=== PATIENT | female | born 1985 | race American Indian/Alaskan Native ===

== ENCOUNTER 2019-10-16 15:45 | Outpatient (CLI) | payer MEDICAID ==
[2019-10-16 17:09] VITALS: BP 140/85
--- NOTE | 2019-10-16 17:28 | Ultrasound Report ---
CLINICAL DATA: well-being TECHNICAL DATA: Document breath, motion, gestational age, tone, and fluid. FINDINGS: respiration, tone, and motion are well visualized and normal. Amniotic fluid volume is normal. Biophysical profile score is 8/8. The lower uterine segment is evaluated and there is no evidence of placenta previa. heart rate is 144 IMPRESSION: The biophysical profile score is 8/8. Signer Name: August Austin MD Signed: 10/16/2019 5:24 PM Workstation Name: [id number]
== END 2019-10-16 17:27 | disposition home or self-care (01) ==
LOC: TRG 15:45
PROVIDERS: ATTEND Obstetrics & Gynecology
DX: O47.1 False labor at or after 37 completed weeks of gestation (principal); Z3A.37 37 weeks gestation of pregnancy
CPT/HCPCS: 76819

== ENCOUNTER 2019-10-27 16:00 | Inpatient (IN) | payer MEDICAID ==
--- NOTE | 2019-10-27 16:08 | History and Physical Report ---
History of Present Illness Date of examination: 10/27/19 Date of admission: 10/27/19 16:00 Chief complaint: Sent from office for IOL d/t pre-e History of present illness: EDC Confirmation: 11/20/2019 Past History : 1 Term Births: 0 Premature Births: 0 Living Children: 0 Para: 0 Mult. Births: 0 Prev : 0 Prev. attempt? 0 Aborta: 0 Elect. Ab: 0 Spont. Ab: 0 Ectopics: 0 Past Medical History: BMI 65 Pt states that she has lost 100lbs in the last 2 years Past Surgical History: negative Past Medical History Anesthesia Complications: negative Anemia: negative Autoimmune Disorder: negative Bleeding Disorder: negative Blood Transfusions: negative Breast Disease: negative Diabetes: negative Heart Disease: negative Hypertension: negative Hepatitis/Liver Disease: negative Kidney Disease/UTI: negative Neurologic/Epilepsy/Migraines: negative Phlebitis/Varicosities: negative Psychiatric: negative Pulmonary Disease/Asthma: negative Thyroid Disease: negative Hospitalizations: negative Surgery (Non-knurling machine operator): negative Abnormal PAP: negative Social Hx: Single no ETOH/Drugs/Smoking Infection History Hx of STD: none Genetic History Congenital Heart Defect: Mom: no Dad: no Ekaterina Disease: Mom: no Dad: no Thalassemia Mom: no Dad: no Neural Tube Defect Mom: no Dad: no Down's Syndrome Mom: no Dad: no José-Sachs Mom: no Dad: no Sickle Cell Disease/Trait Mom: no Dad: no Hemophilia Mom: no Dad: no Muscular Dystrophy Mom: no Dad: no Cystic Fibrosis Mom: no Dad: no [place] Chorea Mom: no Dad: no Mental Retardation Mom: no Dad: no Fragile X Mom: no Dad: no Other Genetic/Chromosomal Disorder Mom: no Dad: no Child w/other defect Mom: no Dad: no Enviromental Exposures Xray Exposure: no Medication, drug, or alcohol use since LMP: no Chemical/Other Exposure: no Exposure to Cat Liter: no Hx of Parvovirus (Fifth Disease): no Occupational Exposure to Children: none Active Medications (reviewed today): ZOFRAN ODT 8 MG ORAL TABLET DISINTEGRATING (ONDANSETRON) 1 po q12hrs prn Current Allergies (reviewed today): No known allergies Past History Past Medical History: other (see HPI) Past Surgical History: other (see HPI) CUSTOMS GUARD History: other (see HPI) Family/Genetic History: other (see HPI) - Obstetrical History Expected Date of Delivery: 11/20/19 Actual Gestation: 36 Week(s) 4 Day(s) : 1 Para: 0 Hx # Term Pregnancies: 0 Number of Pregnancies: 0 Spontaneous Abortions: 0 Induced : 0 Number of Living Children: 0 Medications and Allergies Allergies Allergy/AdvReac Type Severity Reaction Status Date / Time No Known Allergies Allergy Verified 10/27/19 16:21 Review of Systems All systems: negative - Physical Exam Cardiovascular: Regular rate Lungs: Positive: Normal air movement Abdomen: Positive: normal appearance, soft Genitourinary (Female): Positive: normal external genitalia, normal perenium Extremities: Positive: edema - Obstetrical FHR: auscultation normal (efm limitated d/t maternal habitus) Uterine Contraction Monitor Mode: External Cervical Dilatation: 0 (unable to palpate presenting part) Cervical Effacement Percentage: 0 station: -4 Uterine Tone Measurement Phase: Resting Results All other labs normal. Assessment and Plan 34y/o @ 36+4 weeks, morbidly obese, pre-e. Seen in office today - b/p 154/90, 2+ proteinuria, 6lb weight gain in last week. NST nonreactive in office today. Pt denies PORTER/visual changes or epigastric pain. [facility] recommends delivery by 37+0 weeks d/t pre-e or sooner if indicated. reviewed assessment with Dr. Lancaster, will start IOL today. u/s ordered to confirm presentation and BPP. - Patient Problems (1) 36 weeks gestation of Current Visit: Yes Status: Acute (2) Pre-eclampsia Current Visit: Yes Status: Acute Qualifiers: Trimester: third trimester Qualified Code(s): O14.93 - Unspecified pre- eclampsia, third trimester Plan to address problem: IOL w/ cervidil pre-e labs careful monitoring of b/p will start mag sulfate once in active labor (3) BMI 70 and over, adult Current Visit: Yes Status: Acute
[2019-10-27] MEDS ORDERED: ONDANSETRON 4 MG/2 ML INJ IV PRN (16:13)
[2019-10-27] MEDS ORDERED: MINERAL OIL 30 ML ORAL LIQD PO PRN (16:13)
[2019-10-27] MEDS ORDERED: ePHEDrine SULFATE 50 MG/1 ML INJ IV PRN (16:13)
[2019-10-27] MEDS ORDERED: TERBUTALINE 1 MG/1 ML INJ SUB-Q PRN (16:13)
[2019-10-27] MEDS ORDERED: LIDOCAINE (2%) 20 MG/1 ML VIAL 20 ML MDV INFILTRATI ONE (16:13)
[2019-10-27] MEDS ORDERED: OXYTOCIN 20 UNIT/1000ML DRIP 20 UNITS/1,000 ML BAG IV SCH ×2 (17:00→22:00)
[2019-10-27] MEDS ORDERED: DINOPROSTONE 10 MG VAG SUPP VG ONE (17:00)
[2019-10-27] MEDS ORDERED: OXYTOCIN DRIP 30 UNITS/500 ML BAG IV SCH (17:00)
[2019-10-27 17:46] LABS: Hemoglobin 9.2 gm/dl (10.1-14.3); Mean Corpuscular HGB Conc 31 % (30-34); Platelet Count 309 K/mm3 (140-440); Red Blood Count 4.44 M/mm3 (3.65-5.03)
[2019-10-27 17:53] LABS: Mean Corpuscular Volume 68 fl (79-97); Red Cell Distribution Width 20.1 % (13.2-15.2)
[2019-10-27 18:10] LABS: Alanine Aminotransferase 5 units/L (7-56)
[2019-10-27 18:29] LABS: Uric Acid 3.5 mg/dL (3.5-7.6)
[2019-10-27 19:41] LABS: Bacteria,Urine 1+ /HPF (Negative); Bilirubin,Urine NEG (Negative); Blood,Urine SM (Negative); Color,Urine Amber (Yellow); Mucus,Urine 3+ /HPF
[2019-10-27] MEDS: LACTATED RINGERS 1,000 ML IV SCH (20:05)
--- NOTE | 2019-10-27 21:07 | Ultrasound Report ---
Limited OB ultrasound for biophysical profile FINDINGS: breathing, spontaneous motion, posterior and KOBY all score 2/2 for a total of 8 /8. heart rate is 138 minutes. KOBY is normal at 17.1 cm. Single fetus is identified in transver se presentation with the head to the maternal right. Appropriate measurements reveal an MA of 38 week s 1 day for an EDC of 11/09/2019. Signer Name: Julien Mcgovern MD Signed: 10/27/2019 9:03 PM Workstation Name: [id number]
--- NOTE | 2019-10-27 21:28 | Event Note ---
Date: 10/27/19 reviewed u/s - baby is transverse. updated Dr. Lancaster, plan to hold any induction and plan for c/s in AM. Called patient and nurse to discuss plan, patient voiced relief. NPO after MN. Will continue to monitor closely.
[2019-10-27] MEDS ORDERED: METOCLOPRAMIDE 10 MG/2 ML INJ IV ONE (21:29)
[2019-10-27] MEDS ORDERED: FAMOTIDINE 20 MG/2 ML INJ IV ONE (21:29)
[2019-10-27] MEDS ORDERED: BICITRA ORAL LIQD 30ML PO ONE (21:29)
[2019-10-27] MEDS ORDERED: LACTATED RINGERS 1,000 ML IV SCH (22:00)
--- NOTE | 2019-10-28 07:29 | Event Note ---
Date: 10/28/19 Patient informed the risks of the surgery include bleeding possibly bleeding heavy enough to require blood transfusion, infection possible damage to bowel bladder ureter. All questions answered. Patient agrees to proceed
[2019-10-28] MEDS ORDERED: ceFAZolin/STERILE WATER 2 GM/20 ML SYRINGE IV ONE (07:56)
[2019-10-28] MEDS ORDERED: FAMOTIDINE 20 MG/2 ML INJ IV ONE (08:00)
[2019-10-28] MEDS ORDERED: BICITRA ORAL LIQD 30ML PO ONE (08:00)
[2019-10-28] MEDS ORDERED: METOCLOPRAMIDE 10 MG/2 ML INJ IV ONE (08:00)
[2019-10-28] MEDS ORDERED: SODIUM CHLORIDE 0.9% IRR 1,500 ML BOTTLE IR ONE (08:15)
[2019-10-28] MEDS ORDERED: WATER FOR IRRIG STERILE 1,500 ML BOTTLE IR ONE (08:15)
[2019-10-28] MEDS ORDERED: OXYTOCIN 10 UNIT/1 ML INJ ONE (08:41)
[2019-10-28] MEDS ORDERED: ONDANSETRON 4 MG/2 ML INJ ONE (09:07)
[2019-10-28] MEDS ORDERED: KETOROLAC 30 MG/1 ML INJ ONE (09:07)
[2019-10-28] MEDS ORDERED: NALOXONE 0.4 MG/1 ML INJ IV PRN (09:18)
[2019-10-28] MEDS ORDERED: LANOLIN/ZINC/DIMETHICONE (LANSINOH) 7 GM TP PRN (09:18)
[2019-10-28] MEDS ORDERED: KETOROLAC 30 MG/1 ML INJ IV PRN (09:18)
[2019-10-28] MEDS ORDERED: WITCH HAZEL/ GLYCERIN PAD TP PRN (09:18)
--- NOTE | 2019-10-28 09:18 | Operative Report ---
Operative Report Operative Report: Date of procedure: 10/28/2019 Pre-operative diagnosis: 37 weeks gestation Mild preeclampsia Morbid obesity transverse lie Nonreassuring testing Post-operative diagnosis: Same Procedure name(s): Primary low transverse section via Pfannenstiel skin incision Surgeon: Dr. Marin Actuarial Analyst: Lopez Lancaster MD Anesthesia: Epidural EBL: 600 mL Urine output: 50 mL of clear concentrated urine out at the end of the procedure. It should be noted that the urine appeared concentrated prior to the onset of delivery as well Fluids: 400 mL Findings: Liveborn male weight 8 lbs. 11 oz. Apgars of 1 and 9 at one and 5 minutes Small uterine fibroid Grossly normal fallopian tubes and ovaries bilaterally Indications: Patient was admitted for induction of labor secondary to having a nonreactive NST and haven't preeclampsia. Patient was noted to have transverse lie at admission. Decision was made to proceed with section the next morning as patient had just eaten prior to admission to the hospital. All risks benefits and alternatives were discussed with the patient. Consents were signed and placed on the chart. Procedure: Patient was taking to the operating room. Patient was then prepped and draped in sterile fashion after anesthesia was found to be adequate. A low transverse skin incision was made with the scalpel and carried down to the underlying layer of fascia with the Bovie. The fascia was then incised in the midline and this incision was extended bilaterally with the Bovie. The superior aspect of the fascia was grasped with Parvin clamps tented upward and dissected off of the anterior rectus muscles with the scalpel. In similar fashion the inferior aspect of the fascia was grasped with Parvin clamps tented upward and dissected off of the anterior rectus muscles. The rectus muscles were then bluntly divided in the midline. The peritoneum was identified and entered into sharply. The bladder blade was placed. The bladder flap was created using the Metzenbaum scissors. The bladder blade was replaced. A lower transverse uter ine incision was made with the scalpel and extended bilaterally with the bandage scissors. Artificial rupture of membranes was performed yielding clear amniotic fluid. Should be noted that there was a copious amount of amniotic fluid. was noted to be in footling breech presentation at the time of rupture of membranes. The was then delivered via normal breech extraction with some difficulty in delivering the shoulders. The umbilical cord was clamped x2. The cord was cut. The infant was then placed in sterile bassinet. The cord blood was collected. The placenta was manually extracted in its entirety. The uterus was exteriorized and cleared of all clots and debris. The uterine incision was closed using 0 Vicryl in a running locking fashion. A second imbricating layer of the same suture was then created. The posterior cul-de-sac was copiously irrigated. The uterus was returned to the abdomen. The gutters were also irrigated. The anterior rectus fascia was reapproximated using 0 Vicryl in a running fashion. The subcuticular fat was reapproximated using 2-0 Vicryl in a running fashion. The skin was reapproximated with 4-0 Monocryl in a subcuticular stitch. The patient tolerated the procedure well. Sponge lap and needle counts were all correct x3. Patient was taken to the recovery room awake and in stable condition.
--- NOTE | 2019-10-28 09:33 | Anesthesia Consultation ---
Anesthesia Consult and Med Hx Date of service: 10/28/19 - Airway Anesthetic Teeth Evaluation: Poor ROM Head & Neck: Adequate Mental/Hyoid Distance: Adequate Mallampati Class: Class III Intubation Access Assessment: Probably Good - Pulmonary Exam CTA: Yes - Cardiac Exam Cardiac Exam: RRR - Pre-Operative Health Status ASA Pre-Surgery Classification: ASA3 Proposed Anesthetic Plan: Epidural - Pulmonary Hx Smoking: No Hx Asthma: No Hx Respiratory Symptoms: No SOB: No COPD: No Home Oxygen Therapy: No Hx Pneumonia: No Hx Sleep Apnea: No - Cardiovascular System Hx Hypertension: Yes (presently) Hx Coronary Artery Disease: No Hx Heart Attack/AMI: No Hx Angina: No Hx Percutaneous Transluminal Coronary Angioplasty (PTCA): No Hx Cardia Arrhythmia: No Hx Pacemaker: No Hx Internal Defibrillator: No Hx Valvular Heart Disease: No Hx Heart Murmur: No Hx Peripheral Vascular Disease: No - Central Nervous System Hx Neuromuscular Disorder: No Hx Seizures: No CVA: No Hx Back Pain: Yes Hx Psychiatric Problems: No - Gastrointestinal Hx Ulcer: No Hx Gastroesophageal Reflux Disease: Yes - Endocrine Hx Renal Disease: No Hx End Stage Renal Disease: No Hx Cirrhosis: No Hx Liver Disease: No Hx Insulin Dependent Diabetes: No Hx Non-Insulin Dependent Diabetes: No Hx Thyroid Disease: No Hx Hypothyroidism: No Hx Hyperthyroidism: No - Hematic Hx Anemia: No Hx Sickle Cell Disease: No - Other Systems Hx Alcohol Use: No Hx Substance Use: No Hx Cancer: No Hx Obesity: Yes
--- NOTE | 2019-10-28 09:33 | Anesthesia Day of Surgery ---
Anesthesia Day of Surgery - Day of Surgery Patient Examined: Yes Patient H&P Reviewed: Yes Patient is NPO: Yes Beta Blockers: No Cardiac Clearance: No Pulmonary Clearance: No Michoacano's Test: N/A
--- NOTE | 2019-10-28 09:34 | Post Anesthesia Evaluation ---
- Post Anesthesia Evaluation Patient Participated: Yes Airway Patent: Yes Stable Respiratory Function: Yes Nausea/Vomiting: No Temp > 96.8F: Yes Pain Manageable: Yes Adequeate Hydration: Yes Anesthesia Complications: No Block Receding Appropriately: Yes Patient on Ventilator: No
[2019-10-28] MEDS ORDERED: BUPIVACAINE/PF (0.5%) 5 MG/1 ML 30 ML VIAL INFILTRATI ONE (09:38)
[2019-10-28] MEDS ORDERED: OXYTOCIN 20 UNIT/1000ML DRIP 20 UNITS/1,000 ML BAG IV SCH (10:00)
[2019-10-28] MEDS ORDERED: MAGNESIUM SULFATE 40GM/1000ML 40 GM/1,000 ML BAG IV SCH (10:00)
[2019-10-28] MEDS ORDERED: DEXMEDETOMIDINE 200 MCG/2 ML VIAL IV ONE (10:43)
[2019-10-28] MEDS: FERROUS SULFATE 325 MG TAB PO SCH (13:12)
[2019-10-28] MEDS: MORPHINE 2 MG/1 ML INJ IV PRN ×2 (16:15→21:35)
[2019-10-28] MEDS: LACTATED RINGERS 1,000 ML IV SCH (16:54)
[2019-10-28] MEDS: ceFAZolin/NS 1 GM/50 ML 1 GM/50 ML BAG IV SCH (17:00)
[2019-10-28 20:20] LABS: Hematocrit 26.3 % (30.3-42.9); Hemoglobin 8.1 gm/dl (10.1-14.3)
[2019-10-29] MEDS ORDERED: ALUM-MAG HYDROXIDE-SIMETHICONE 200-200-20MG/5ML ORAL LIQD 30 ML PO ONE (01:08)
[2019-10-29] MEDS: LACTATED RINGERS 1,000 ML IV SCH (01:41)
[2019-10-29] MEDS: ceFAZolin/NS 1 GM/50 ML 1 GM/50 ML BAG IV SCH (01:41)
[2019-10-29] MEDS ORDERED: TETANUS,DIPH,PERTUSS(ACELL) VACCINE 0.5 ML SYRINGE IM ONE (06:00)
--- NOTE | 2019-10-29 07:34 | Progress Note ---
Assessment and Plan Pt in good spirits this AM. "I just want to get up and walk around." Pt voiced understanding @ POC and that MGSO4 will be off @ 1000. As noted start Labetalol 200mg BID. Order in EMR and verbalized to RN caring for pt. Orders for transfer to [facility] in EMR - Patient Problems (1) delivery delivered Onset Date: ~10/28/19 Current Visit: Yes Status: Acute Plan to address problem: Encouraged pt to use IS. Advance diet and activity as tolerated. Continue PP pathway (2) Pre-eclampsia Onset Date: ~10/28/19 Current Visit: Yes Status: Acute Qualifiers: Trimester: third trimester Qualified Code(s): O14.93 - Unspecified pre- eclampsia, third trimester Plan to address problem: 160-130/80-60 Denies PORTER, blurred vision, chest pain. Consulted with Will start Labetalol 200mg po BID MGSO4 off @ 1000. Will transfer to [facility] Subjective - Subjective Date of service: 10/29/19 (24hr MGSO4 complete @ 1000) Principal diagnosis: Day#1 s/p primary section Mild PreE Patient reports: voiding normally (clear yellow urine to BSB), pain well controlled, flatus [place]: doing well Objective - Vital Signs Latest vital signs: Vital Signs Temp Pulse Resp BP Pulse Ox 10/29/19 07:27 95 H 100 10/29/19 07:22 99 H 98 10/29/19 07:17 104 H 100 10/29/19 07:12 102 H 157/81 100 10/29/19 07:07 102 H 100 10/29/19 07:02 114 H 100 10/29/19 06:57 105 H 100 10/29/19 06:52 104 H 99 10/29/19 06:47 100 H 100 10/29/19 06:42 106 H 99 10/29/19 06:37 104 H 100 10/29/19 06:32 109 H 100 10/29/19 06:27 104 H 99 10/29/19 06:22 104 H 98 10/29/19 06:17 103 H 99 10/29/19 06:12 103 H 136/69 99 10/29/19 06:07 104 H 99 10/29/19 06:02 107 H 100 10/29/19 05:57 102 H 99 10/29/19 05:52 106 H 98 10/29/19 05:47 104 H 99 10/29/19 05:42 103 H 95 10/29/19 05:36 111 H 100 10/29/19 05:31 103 H 96 10/29/19 05:26 102 H 96 10/29/19 05:21 104 H 97 10/29/19 05:16 107 H 97 10/29/19 05:12 106 H 145/81 10/29/19 05:11 98 H 96 10/29/19 05:06 102 H 97 10/29/19 05:01 99 H 97 10/29/19 04:56 101 H 98 10/29/19 04:51 106 H 97 10/29/19 04:46 109 H 98 10/29/19 04:41 104 H 97 10/29/19 04:36 105 H 97 10/29/19 04:31 104 H 97 10/29/19 04:26 103 H 98 10/29/19 04:21 106 H 98 10/29/19 04:16 109 H 97 10/29/19 04:12 105 H 155/80 10/29/19 04:11 110 H 98 10/29/19 04:06 106 H 95 10/29/19 04:01 110 H 97 10/29/19 03:56 107 H 97 10/29/19 03:51 109 H 97 10/29/19 03:49 114 H 94 10/29/19 03:46 109 H 98 10/29/19 03:43 108 H 155/84 10/29/19 03:41 86 89 10/29/19 03:33 118 H 99 10/29/19 03:28 112 H 98 10/29/19 03:23 110 H 169/77 99 10/29/19 03:18 112 H 98 10/29/19 03:13 112 H 99 10/29/19 03:12 109 H 166/81 10/29/19 03:08 109 H 98 10/29/19 03:03 111 H 99 10/29/19 02:58 110 H 98 10/29/19 02:53 109 H 99 10/29/19 02:48 110 H 99 10/29/19 02:43 108 H 98 10/29/19 02:38 107 H 99 10/29/19 02:33 101 H 98 01/19/20 02:28 105 H 99 10/29/19 02:27 105 H 163/79 10/29/19 02:23 116 H 99 10/29/19 02:22 104 H 176/102 10/29/19 02:19 111 H 94 10/29/19 02:18 105 H 98 10/29/19 02:15 103 H 156/79 10/29/19 02:13 107 H 99 10/29/19 02:12 100 H 171/84 10/29/19 02:08 105 H 98 10/29/19 02:03 101 H 99 10/29/19 01:58 109 H 99 10/29/19 01:53 104 H 98 10/29/19 01:48 102 H 99 10/29/19 01:43 102 H 98 10/29/19 01:38 101 H 98 10/29/19 01:33 106 H 98 10/29/19 01:28 106 H 100 10/29/19 01:23 103 H 99 10/29/19 01:18 107 H 98 10/29/19 01:13 104 H 99 10/29/19 01:08 111 H 98 10/29/19 01:06 103 H 150/86 10/29/19 01:03 115 H 99 10/29/19 00:58 104 H 99 10/29/19 00:53 110 H 97 10/29/19 00:48 100 H 98 10/29/19 00:43 107 H 99 10/29/19 00:38 97 H 98 10/29/19 00:33 106 H 98 10/29/19 00:28 99 H 100 10/29/19 00:23 101 H 100 10/29/19 00:18 107 H 100 10/29/19 00:13 99 H 99 10/29/19 00:08 95 H 97 10/29/19 00:03 95 H 99 10/28/19 23:58 93 H 96 10/28/19 23:53 90 96 10/28/19 23:48 89 96 10/28/19 23:46 89 93 10/28/19 23:43 96 H 98 10/28/19 23:38 94 H 99 10/28/19 23:33 98 H 98 10/28/19 23:28 99 H 98 01/18/20 23:23 98 H 100 0118/20 23:18 102 H 99 0118/20 23:16 90 88 0118/20 23:14 95 H 131/68 0118/20 23:13 74 96 0118/20 23:08 98 H 98 0118/20 23:03 95 H 97 0118/20 22:58 99 H 100 0118/20 22:53 96 H 100 0118/20 22:48 99 H 98 18/20 22:43 102 H 98 18/20 22:38 96 H 99 18/20 22:33 97 H 99 18/20 22:32 100 H 93 18/20 22:28 100 H 98 18/20 22:26 105 H 88 0118/20 22:24 96 H 137/62 18/20 22:23 100 H 97 0118/20 22:18 98 H 100 18/20 22:15 101 H 91 18/20 22:13 96 H 94 18/20 22:08 96 H 98 18/20 22:03 103 H 99 18/20 21:58 93 H 99 18/20 21:53 93 H 99 18/20 21:50 95 H 94 18/20 21:48 87 97 18/20 21:43 91 H 99 18/20 21:38 94 H 99 18/20 21:35 20 01/18/20 21:33 89 99 18/20 21:28 88 98 18/20 21:23 94 H 99 18/20 21:18 85 98 18/20 21:15 87 139/66 18/20 21:13 91 H 97 0118/20 21:08 91 H 98 18/20 21:03 87 98 0118/20 20:58 90 100 0118/20 20:53 91 H 99 0118/20 20:48 94 H 98 18/20 20:43 90 99 0118/20 20:38 92 H 99 18/20 20:33 88 98 18/20 20:28 89 97 18/20 20:23 95 H 98 0118/20 20:18 88 98 01/18/20 20:16 88 136/68 18/20 20:13 91 H 98 18/20 20:08 89 98 18/20 20:03 89 99 18/20 19:58 91 H 100 18/20 19:53 95 H 99 18/20 19:48 92 H 100 18/20 19:43 86 97 18/20 19:38 90 98 18/20 19:33 96 H 98 18/20 19:30 98.5 F 18/20 19:28 90 99 18/20 19:23 89 99 18/20 19:18 86 99 18/20 19:13 94 H 98 18/20 19:12 96 H 148/85 18/20 19:08 89 98 18/20 19:03 89 98 18/20 18:58 87 97 18/20 18:53 88 100 18/20 18:48 84 99 18/20 18:43 90 100 18/20 18:38 90 100 18/20 18:33 84 100 18/20 18:28 80 99 18/20 18:23 93 H 100 18/20 18:18 88 96 18/20 18:14 75 92 18/20 18:13 83 97 18/20 18:12 80 136/65 18/20 18:08 83 95 18/20 18:03 89 80 L 18/20 17:58 74 98 18/20 17:56 84 89 18/20 17:53 72 89 18/20 17:51 82 83 L 18/20 17:48 71 95 18/20 17:46 77 93 18/20 17:43 82 100 18/20 17:40 82 94 18/20 17:38 85 92 18/20 17:35 68 93 18/20 17:33 73 97 /18/20 17:29 75 94 /18/20 17:28 83 95 18/20 17:23 78 95 18/20 17:22 75 90 18/20 17:18 85 99 01/18/20 17:13 86 126/59 100 /18/20 17:08 82 100 18/20 17:03 98.2 F 92 H 20 98 18/20 16:58 83 99 18/20 16:53 75 99 18/20 16:48 84 96 18/20 16:47 73 92 18/20 16:43 92 H 95 18/20 16:41 73 94 18/20 16:38 78 98 18/20 16:36 79 93 18/20 16:33 78 97 18/20 16:28 85 95 18/20 16:27 81 94 18/20 16:23 85 97 18/20 16:18 90 100 18/20 16:16 86 88 18/20 16:13 82 98 18/20 16:12 82 137/73 18/20 16:08 98 H 96 10/28/20 16:07 69 94 20 16:03 74 95 20 16:01 86 89 18/20 15:58 67 97 18/20 15:56 68 92 18/20 15:53 81 98 18/20 15:48 91 H 93 18/20 15:43 70 90 18/20 15:38 81 98 18/20 15:37 78 92 18/20 15:33 83 99 18/20 15:28 84 100 18/20 15:23 84 99 18/20 15:18 80 100 18/20 15:13 91 H 99 18/20 15:11 79 133/72 18/20 15:08 87 99 18/20 15:04 92 H 94 18/20 15:03 85 98 18/20 14:59 89 88 18/20 14:58 86 97 18/20 14:53 78 100 18/20 14:48 85 97 18/20 14:43 82 99 18/20 14:38 79 98 18/20 14:33 83 100 18/20 14:28 88 98 10/28/20 14:25 98.1 F 20 10/28/19 14:23 76 100 10/28/19 14:18 81 99 10/28/19 14:13 86 100 10/28/19 14:08 85 99 10/28/19 14:03 85 100 10/28/19 13:58 85 97 10/28/19 13:53 83 99 10/28/19 13:48 83 99 10/28/19 13:43 90 99 10/28/19 13:38 79 85 10/28/19 13:33 94 H 98 10/28/19 13:28 90 98 10/28/19 13:23 92 H 97 10/28/19 13:21 52 L 86 10/28/19 13:18 94 H 99 10/28/19 13:13 85 99 10/28/19 13:08 90 96 10/28/19 13:05 87 94 10/28/19 13:03 92 H 94 10/28/19 13:00 93 H 129/78 94 10/28/19 12:58 92 H 94 10/28/19 12:55 92 H 94 10/28/19 12:53 90 95 10/28/19 12:50 90 94 10/28/19 12:48 91 H 95 10/28/19 12:44 93 H 94 10/28/19 12:43 89 94 10/28/19 12:38 91 H 94 10/28/19 12:37 89 94 10/28/19 12:33 91 H 94 10/28/19 12:29 91 H 93 10/28/19 12:28 87 95 10/28/19 12:23 88 94 10/28/19 12:18 87 99 10/28/19 12:13 89 98 10/28/19 12:08 92 H 98 10/28/19 12:03 96 H 98 10/28/19 11:58 89 100 10/28/19 11:52 88 97 10/28/19 11:50 88 133/73 10/28/19 11:47 88 98 20 11:42 86 99 10/28/19 11:37 90 100 10/28/19 11:35 84 128/79 20 11:32 92 H 99 10/28/19 11:27 85 100 10/28/19 11:22 88 98 10/28/19 11:20 83 135/71 10/28/19 11:17 78 99 10/28/19 11:12 85 98 10/28/19 11:07 82 99 10/28/19 11:05 86 136/72 10/28/19 11:02 81 99 10/28/19 10:57 91 H 100 10/28/19 10:52 84 125/65 98 10/28/19 10:30 97.9 F 10/28/19 10:20 97.9 F 78 25 H 130/69 100 10/28/19 10:05 85 24 127/78 100 10/28/19 09:50 94 H 22 131/71 100 10/28/19 09:35 78 25 H 122/64 100 10/28/19 09:30 87 19 105/60 100 10/28/19 09:25 97.9 F 90 15 102/55 100 Intake and Output 10/28/19 10/29/19 10/29/19 22:59 06:59 14:59 Intake Total 50 1000 Output Total 1525 2300 Balance -1475 -1300 Intake: IV 50 1000 ANCEF/NS 1 GM/50 ML 1 gm 50 In 50 ml @ 100 mls/hr IV Q8H ARSH Rx#:[id number] Lactated Ringers 1,000 ml 1000 @ 125 mls/hr IV DIRECT ARSH Rx#:[id number] Output: Urine 1525 2300 Indwelling Catheter 1525 2300 Other: Total, Output Amount 300 350 - Exam Breasts: Present: normal Cardiovascular: Present: Regular rate Lungs: Present: Clear to auscultation, Other (strongly encouraged IS) Abdomen: Present: normal appearance, soft Vulva: both: normal Uterus: Present: normal Extremities: Present: normal, edema Deep Tendon Reflex Grade: Normal +2 Incision: Present: normal, dry, intact - Labs Labs: Abnormal lab results 10/28/19 10/28/19 10/28/19 Range/Units 17:00 19:26 23:05 Hgb 8.1 L (10.1-14.3) gm/dl Hct 26.3 L (30.3-42.9) % Magnesium 2.40 H 2.70 H (1.7-2.3) mg/dL
[2019-10-29] MEDS: HYDROcodone/ACETAMINOPHEN 5-325 MG TAB PO PRN (16:08)
[2019-10-29] MEDS: IBUPROFEN 800 MG TAB PO PRN (16:10)
[2019-10-30] MEDS: HYDROcodone/ACETAMINOPHEN 5-325 MG TAB PO PRN ×3 (02:56→17:29)
--- NOTE | 2019-10-30 07:49 | Progress Note ---
Assessment and Plan A: 34 y.o. POD#2 s/p primary , s/p magnesium infusion (Turned off on 10/29/2019@ 1000am) d/t pre e. Also diagnosis of poly. P: Continue with care today. Continue to monitor BP's Discharge home in AM if BP's and continues to be stable. Labetalol 200mg BID @ home after Dr. Lancaster updated on BP's. Prescription on chart. Subjective - Subjective Date of service: 10/30/19 (Pt states doing well. ) Principal diagnosis: Day#2 s/p primary section Mild PreE Patient reports: appetite normal, voiding normally, pain well controlled, ambulating normally : doing well Objective - Vital Signs Latest vital signs: Vital Signs Temp Pulse Resp BP BP Pulse Ox 10/30/19 05:20 98.3 F 85 18 135/73 100 10/30/19 02:56 18 10/29/19 22:36 89 126/80 10/29/19 22:33 89 18 126/80 10/29/19 17:07 97.9 F 82 18 129/76 10/29/19 16:10 20 10/29/19 16:08 20 10/29/19 12:00 98.3 F 95 H 20 137/79 10/29/19 11:49 94 H 136/78 10/29/19 11:45 99.8 F H 94 H 136/78 100 10/29/19 10:32 96 H 97 10/29/19 10:27 98 H 99 10/29/19 10:22 101 H 99 10/29/19 10:17 101 H 99 10/29/19 10:12 100 H 100 10/29/19 10:07 105 H 154/83 100 10/29/19 10:02 101 H 100 10/29/19 09:57 98 H 98 10/29/19 09:56 95 H 154/83 10/29/19 09:54 86 94 10/29/19 09:52 92 H 96 10/29/19 09:47 94 H 100 10/29/19 09:42 98 H 98 10/29/19 09:37 99 H 97 10/29/19 09:32 99 H 99 10/29/19 09:27 98 H 99 10/29/19 09:22 104 H 97 10/29/19 09:17 107 H 99 10/29/19 09:12 94 H 98 10/29/19 09:07 97 H 100 10/29/19 09:02 97 H 100 10/29/19 08:57 100 H 99 10/29/19 08:52 102 H 99 10/29/19 08:47 105 H 99 10/29/19 08:42 99 H 99 10/29/19 08:37 96 H 99 10/29/19 08:32 106 H 100 10/29/19 08:27 111 H 98 10/29/19 08:22 100 H 99 10/29/19 08:20 98.8 F 104 H 20 147/84 10/29/19 08:17 100 H 99 10/29/19 08:12 102 H 147/84 100 10/29/19 08:07 103 H 99 10/29/19 08:02 101 H 100 10/29/19 07:57 106 H 99 10/29/19 07:52 103 H 100 10/29/19 07:47 100 H 99 Intake and Output 10/29/19 10/30/19 10/30/19 22:59 06:59 14:59 Intake Total 980 480 Output Total 300 Balance 680 480 Intake: Oral 980 480 Output: Urine 300 Void 300 Other: Total, Intake Amount 500 240 Total, Output Amount 300 # Voids Void 1 - Exam Breasts: Present: deferred Cardiovascular: Present: Regular rate, Normal S1, Normal S2 Lungs: Present: Normal air movement Abdomen: Present: normal appearance, soft, normal bowel sounds Vulva: both: normal Uterus: Present: normal, other (Minimal lochia rubra) Extremities: Present: normal Deep Tendon Reflex Grade: Normal +2 Incision: Present: normal, dry (No drainage noted. ), intact (No s/sx of infection. ) Comments: H/H 8.1/26.3, BP's 120's-150's/70-80's, adequate I&O's. - Labs Labs: Abnormal lab results 10/29/19 Range/Units 07:40 Magnesium 2.50 H (1.7-2.3) mg/dL
[2019-10-30] MEDS: FERROUS SULFATE 325 MG TAB PO SCH (10:47)
[2019-10-31] MEDS: IBUPROFEN 800 MG TAB PO PRN ×2 (01:09→22:00)
--- NOTE | 2019-10-31 08:07 | Progress Note ---
Assessment and Plan patient doing well, requesting d/c home tomorrow d/t baby in NICU. H&H stable, asymptomatic anemia following acute blood loss. Pt tolerating labetalol well, b/p mostly 120's-150/60-90's. Pt denies PORTER, visual changes or epigastric pain. Will continue to monitor and plan for d/c home tomorrow. - Patient Problems (1) Pre-eclampsia Onset Date: ~10/28/19 Current Visit: Yes Status: Acute Qualifiers: Trimester: third trimester Qualified Code(s): O14.93 - Unspecified pre- eclampsia, third trimester (2) BMI 70 and over, adult Current Visit: Yes Status: Acute Plan to address problem: care of incision reviewed continue use of bariatric bed Ambulate and use ISS frequently Shower today (3) delivery delivered Onset Date: ~10/28/19 Current Visit: Yes Status: Acute Plan to address problem: continue postop pathway Shower today Ambulate to NICU to see baby Pump breast q3hr and bring all colostrum and milk to NICU d/c home tomorrow Subjective - Subjective Date of service: 10/31/19 Principal diagnosis: Day#3 s/p primary section Mild PreE Interval history: EDC Confirmation: 11/20/2019 Past History : 1 Term Births: 0 Premature Births: 0 Living Children: 0 Para: 0 Mult. Births: 0 Prev : 0 Prev. attempt? 0 Aborta: 0 Elect. Ab: 0 Spont. Ab: 0 Ectopics: 0 Past Medical History: BMI 65 Pt states that she has lost 100lbs in the last 2 years Past Surgical History: negative Past Medical History Anesthesia Complications: negative Anemia: negative Autoimmune Disorder: negative Bleeding Disorder: negative Blood Transfusions: negative Breast Disease: negative Diabetes: negative Heart Disease: negative Hypertension: negative Hepatitis/Liver Disease: negative Kidney Disease/UTI: negative Neurologic/Epilepsy/Migraines: negative Phlebitis/Varicosities: negative Psychiatric: negative Pulmonary Disease/Asthma: negative Thyroid Disease: negative Hospitalizations: negative Surgery (Non-campus interviews intern): negative Abnormal PAP: negative Social Hx: Single no ETOH/Drugs/Smoking Infection History Hx of STD: none Genetic History Congenital Heart Defect: Mom: no Dad: no Ekaterina Disease: Mom: no Dad: no Thalassemia Mom: no Dad: no Neural Tube Defect Mom: no Dad: no Down's Syndrome Mom: no Dad: no José-Sachs Mom: no Dad: no Sickle Cell Disease/Trait Mom: no Dad: no Hemophilia Mom: no Dad: no Muscular Dystrophy Mom: no Dad: no Cystic Fibrosis Mom: no Dad: no [place] Chorea Mom: no Dad: no Mental Retardation Mom: no Dad: no Fragile X Mom: no Dad: no Other Genetic/Chromosomal Disorder Mom: no Dad: no Child w/other defect Mom: no Dad: no Enviromental Exposures Xray Exposure: no Medication, drug, or alcohol use since LMP: no Chemical/Other Exposure: no Exposure to Cat Liter: no Hx of Parvovirus (Fifth Disease): no Occupational Exposure to Children: none Active Medications (reviewed today): ZOFRAN ODT 8 MG ORAL TABLET DISINTEGRATING (ONDANSETRON) 1 po q12hrs prn Current Allergies (reviewed today): No known allergies Patient reports: appetite normal, voiding normally, pain well controlled, flatus, ambulating normally, no dizzy ambulation, no nauseated : in NICU Objective - Vital Signs Latest vital signs: Vital Signs Temp Pulse Resp BP BP Pulse Ox 10/31/19 04:25 98.3 F 84 20 142/84 100 10/30/19 22:18 84 151/84 10/30/19 17:25 98.3 F 88 20 134/81 98 10/30/19 11:53 98.4 F 89 16 111/64 97 10/30/19 10:48 88 141/90 10/30/19 08:43 98.6 F 88 20 147/96 97 Intake and Output 10/30/19 10/31/19 10/31/19 23:59 07:59 15:59 Intake Total 360 120 Balance 360 120 Intake: Oral 120 Intake, Free Water 240 120 Other: Total, Intake Amount 120 # Voids Void 2 1 - Exam Breasts: Present: normal, (pumping, still soft) Cardiovascular: Present: Regular rate Lungs: Present: Clear to auscultation, Normal air movement Abdomen: Present: normal appearance, soft. Absent: distention, tenderness Vulva: both: normal Uterus: Present: normal, firm Extremities: Present: normal Incision: Present: normal, dry, intact
[2019-10-31] MEDS: FERROUS SULFATE 325 MG TAB PO SCH (09:53)
[2019-10-31] MEDS: HYDROcodone/ACETAMINOPHEN 5-325 MG TAB PO PRN (16:41)
[2019-11-01] MEDS: HYDROcodone/ACETAMINOPHEN 5-325 MG TAB PO PRN (03:09)
--- NOTE | 2019-11-01 06:00 | Discharge Summary ---
Providers - Providers Date of Admission: 10/27/19 16:00 Date of discharge: 11/01/19 (pt agrees with d/c) Attending physician: ANDRES WOLF Primary care physician: TUMBLER PLATER Hospitalization Reason for admission: labor Delivery: (malpresentation) Procedure: primary low transverse Episiotomy: none Laceration: none Incision: normal, dry, intact Other procedures: none complications: none Discharge diagnosis: delivery baby: male (pt will call to [facility] circ) Hospital course: uncomplicated primary section malpresentation; PreE; BMI>70 Pt A&O No c/o voiced NB present in room BP 140-130/80 afebrile Incision Intact H&H chronic anemia Pt is asymptomatic RX po iron @ d/c Doing well s/p c/s P: d/c today with instructions Stressed wound care and keeping area clean and dry. RTO 1 wk for postop and circ RX provided. Also reviewed importance of taking Labetalol and to call with PORTER, blurred vision, chest pain. Condition at discharge: Good Disposition: DC-01 TO HOME OR SELFCARE - Discharge Diagnoses (1) delivery delivered Status: Acute Comment: RTO one week postop care (2) Pre-eclampsia Status: Acute Qualifiers: Trimester: third trimester Qualified Code(s): O14.93 - Unspecified pre- eclampsia, third trimester Plan - Discharge Medications Prescriptions: Docusate Sodium [Colace] 100 mg PO BID PRN #60 capsule PRN Reason: Constipation Lidocain2.5%/Prilocai2.5% [Emla] 2 gm TP ONCE #1 tube Ferrous Sulfate [Feosol 325 MG tab] 325 mg PO QDAY #60 tablet labetaloL [Labetalol 200mg TAB] 200 mg PO BID #60 tablet Ibuprofen [Motrin 800 MG tab] 800 mg PO Q8HR PRN #30 tablet PRN Reason: Pain, Moderate (4-6) oxyCODONE /ACETAMINOPHEN [Percocet 5/325] 1 tab PO Q4HR #30 tab - Provider Discharge Summary Activity: routine, no sex for 6 weeks, no heavy lifting 4 weeks, no strenuous exercise Diet: routine Instructions: routine Additional instructions: [] Smoking cessation referral if applicable(refer to patient education folder for contact #) [] Refer to [facility] Booklet Call your doctor immediately for: * Fever > 100.5 * Heavy vaginal bleeding ( >1 pad per hour) * Severe persistent headache * Shortness of breath * Reddened, hot, painful area to leg or breast * Drainage or odor from incision. * Keep incision clean and dry at all times and follow doctor's instructions regarding bathing/showering - Follow up plan Follow up: PRIMARY CARE, [Primary Care Provider] - 7 Days OTTO MORIN CNM [Advanced Practice Nurse] - 7 Days (Congratulations! Please call [phone] to schedule your postoperative visit and your son's circumcision in one week. Bring the EMLA cream with you to his visit. Do NOT use at home. Take medications as prescribed. Call with headache, blurred vision, chest pain. Call with concerns.)
[2019-11-01] MEDS: IBUPROFEN 800 MG TAB PO PRN (06:16)
[2019-11-01] MEDS: FERROUS SULFATE 325 MG TAB PO SCH (09:46)
[2019-11-01 17:27] VITALS: BP 162/85
== END 2019-11-01 16:30 | disposition home or self-care (01) | DRG 765 ==
LOC: LD 16:00 → OB 10-29 12:04
PROVIDERS: ADMIT Obstetrics & Gynecology; ATTEND Obstetrics & Gynecology
PROC: 3E0P7VZ Introduction of Hormone into Female Reproductive, Via Natural or Artificial Opening (ICD-10-PCS; 2019-10-27)
PROC: 10D00Z1 Extraction of Products of Conception, Low, Open Approach (ICD-10-PCS; principal; 2019-10-28)
PROC: 3E0234Z Introduction of Serum, Toxoid and Vaccine into Muscle, Percutaneous Approach (ICD-10-PCS; 2019-10-29)
DX: O14.04 Mild to moderate pre-eclampsia, complicating childbirth (principal); D62 Acute posthemorrhagic anemia; O60.14X0 Preterm labor third trimester with preterm delivery third trimester, not applicable or unspecified; Z3A.36 36 weeks gestation of pregnancy; O99.62 Diseases of the digestive system complicating childbirth; Z37.0 Single live birth; O99.214 Obesity complicating childbirth; K21.9 Gastro-esophageal reflux disease without esophagitis; O32.2XX0 Maternal care for transverse and oblique lie, not applicable or unspecified; O90.81 Anemia of the puerperium; Z23 Encounter for immunization
CPT/HCPCS: 36415; 76816; 76819; 81001; 82565; 83615; 83735; 84450; 84460; 84550; 85014; 85018; 85027; 86592; 86850; 86900; 86901; 88307; 96360; 96361; G0378; J0690; J1885; J2270; J2405; J2590; J2765; J3475; J3490; J7120

== ENCOUNTER 2019-11-22 07:59 | Outpatient (CLI) | payer MEDICAID ==
[2019-11-22] MEDS ORDERED: LIDOCAINE (4%) 40 MG/ML TOPICAL SOLN 50 ML BOTTLE TP SCH (08:45)
[2019-11-22] MEDS ORDERED: SODIUM CHLORIDE 0.9% IRR 500 ML BOTTLE IR SCH (09:30)
== END 2019-11-22 08:00 | disposition home or self-care (01) ==
LOC: WOUND 07:59
PROVIDERS: ATTEND Surgery
DX: O90.0 Disruption of cesarean delivery wound (principal); Z87.891 Personal history of nicotine dependence
CPT/HCPCS: 11042; G0463; 99214

== ENCOUNTER 2021-01-24 15:46 | Emergency (ER) | payer OTHER, MEDICAID ==
[2021-01-24 16:55] VITALS: BP 198/108
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
== END 2021-01-24 18:30 | disposition home or self-care (01) ==
LOC: ED 15:46
DX: S29.011A Strain of muscle and tendon of front wall of thorax, initial encounter (principal); S16.1XXA Strain of muscle, fascia and tendon at neck level, initial encounter; I10 Essential (primary) hypertension; Z79.899 Other long term (current) drug therapy; V49.59XA Passenger injured in collision with other motor vehicles in traffic accident, initial encounter; Y93.89 Activity, other specified; Y92.488 Other paved roadways as the place of occurrence of the external cause; Y99.8 Other external cause status
CPT/HCPCS: 71046; 99283

== ENCOUNTER 2021-12-04 21:03 | Emergency (ER) | payer MEDICAID ==
--- NOTE | 2021-12-04 23:55 | Emergency Department Report ---
ED General Adult HPI - General Chief complaint: High BP Stated complaint: BP ISSUES Time Seen by Provider: 12/04/21 23:30 Source: patient, RN notes reviewed, old records reviewed Mode of arrival: Ambulatory Limitations: No Limitations - History of Present Illness Initial comments: The patient was evaluated in the emergency department for symptoms described in the history of present illness. He/she was evaluated in the context of the global COVID-19 pandemic, which necessitated consideration that the patient might be at risk for infection with the virus that causes COVID-19. Institutional protocols and algorithms that pertain to the evaluation of patients at risk for COVID-19 are in a state of rapid change based on information released by regulatory bodies including the CDC and federal and state organizations. These policies and algorithms were followed during the patient's care in the emergency department. Please note that these policies, procedures and recommendations changed on a rapid basis. This patient is a 36-year-old female with a history of body mass index of 69. She also has a history of tobacco use and marijuana use, but reports that she stopped smoking last week. She has her COVID-19 vaccination series complete, but has not completed her booster. The patient presents to the ER today with a complaint of feeling unwell, after recently starting lisinopril medication for elevated blood pressure diagnosis. Patient reports that a few weeks ago, she felt generally weak and lightheaded, and went to an urgent care center. She reports that she had blood work and an EKG performed, and reports that these were unremarkable. She reports that she was placed on a blood pressure medication, the name of which she cannot r emember, and after taking this unknown medication, she felt really poorly, and weak, and refused to take the medication. She then went back to the urgent care center, articulated her concerns about the medication, and she reports that she was prescribed a different kind of blood pressure medication, although she reports she did not have a repeat evaluation by the the provider at the urgent care center. She reports this new medication is lisinopril. She reports that this medication is still making her feel somewhat weak. At the moment, she denies headache, neck pain, chest pain, abdominal pain, shortness of breath, focal family weakness and numbness. She states that at this point time, she feels "okay." On review of systems, patient in bed partner endorsed that she snores quite a bit at night. No formal diagnosis of obstructive sleep apnea that she is aware of. Has not followed up with a primary care doctor in "a really long time." Reports that she has follow-up with her primary care doctor tomorrow to establish care. Severity scale (0 -10): 0 Consistency: intermittent Improves with: rest Worsens with: other (Blood pressure medication) - Related Data Previous Rx's Medication Instructions Recorded Last Taken Type Docusate Sodium [Colace] 100 mg PO BID PRN #60 capsule 10/28/19 Unknown Rx Ferrous Sulfate [Feosol 325 MG tab] 325 mg PO QDAY #60 tablet 10/28/19 Unknown Rx Ibuprofen [Motrin 800 MG tab] 800 mg PO Q8HR PRN #30 tablet 10/28/19 Unknown Rx Lidocain2.5%/Prilocai2.5% [Emla] 2 gm TP ONCE #1 tube 10/28/19 Unknown Rx oxyCODONE /ACETAMINOPHEN [Percocet 1 tab PO Q4HR #30 tab 10/28/19 Unknown Rx 5/325] labetaloL [Labetalol 200mg TAB] 200 mg PO BID #60 tablet 10/30/19 Unknown Rx Lidocaine [Lidoderm] 1 each TP BID #20 adh..patch 01/24/21 Unknown Rx Naproxen 500 mg PO BID #20 tablet 01/24/21 Unknown Rx Nicotine Polacrilex [Nicotine Gum] 4 mg BC PRN #1 pack 12/04/21 Unknown Rx Allergies Allergy/AdvReac Type Severity Reaction Status Date / Time No Known Allergies Allergy Verified 10/27/19 16:21 ED Review of Systems ROS: Stated complaint: BP ISSUES Other details as noted in HPI Constitutional: denies: fever Eyes: denies: eye discharge, vision change ENT: denies: epistaxis Respiratory: denies: cough Cardiovascular: denies: chest pain Gastrointestinal: denies: abdominal pain, nausea, vomiting, diarrhea Neurological: denies: weakness Hematological/Lymphatic: denies: easy bleeding ED Past Medical Hx - Past Medical History Previous Medical History?: Yes Hx Hypertension: Yes (presently) Hx Heart Attack/AMI: No Hx Diabetes: No Hx Deep Vein Thrombosis: No Hx Liver Disease: No Hx Renal Disease: No Hx Sickle Cell Disease: No Hx Seizures: No Hx Asthma: No Hx COPD: No Hx HIV: No Additional medical history: Obesity - Surgical History Past Surgical History?: Yes Hx Pacemaker: No Hx Internal Defibrillator: No Additional Surgical History: C-Sec - Social History Smoking Status: Never Smoker - Medications Home Medications: Home Medications Medication Instructions Recorded Confirmed Last Taken Type Docusate Sodium [Colace] 100 mg PO BID PRN #60 capsule 10/28/19 Unknown Rx Ferrous Sulfate [Feosol 325 MG tab] 325 mg PO QDAY #60 tablet 10/28/19 Unknown Rx Ibuprofen [Motrin 800 MG tab] 800 mg PO Q8HR PRN #30 tablet 10/28/19 Unknown Rx Lidocain2.5%/Prilocai2.5% [Emla] 2 gm TP ONCE #1 tube 10/28/19 Unknown Rx oxyCODONE /ACETAMINOPHEN [Percocet 1 tab PO Q4HR #30 tab 10/28/19 Unknown Rx 5/325] labetaloL [Labetalol 200mg TAB] 200 mg PO BID #60 tablet 10/30/19 Unknown Rx Lidocaine [Lidoderm] 1 each TP BID #20 adh..patch 01/24/21 Unknown Rx Naproxen 500 mg PO BID #20 tablet 01/24/21 Unknown Rx Nicotine Polacrilex [Nicotine Gum] 4 mg BC PRN #1 pack 12/04/21 Unknown Rx ED Physical Exam - General Limitations: No Limitations, Physical Limitation General appearance: alert, in no apparent distress, obese - Head Head exam: Present: atraumatic, normocephalic - Eye Eye exam: Present: normal appearance, EOMI. Absent: nystagmus - ENT ENT exam: Present: normal exam, normal orophraynx, mucous membranes moist, normal external ear exam - Neck Neck exam: Present: normal inspection, full ROM. Absent: tenderness, meningismus - Respiratory Respiratory exam: Present: normal lung sounds bilaterally. Absent: respiratory distress, wheezes, rales, rhonchi, stridor, decreased breath sounds - Cardiovascular Cardiovascular Exam: Present: regular rate, normal rhythm, normal heart sounds. Absent: bradycardia, tachycardia, irregular rhythm, systolic murmur, diastolic murmur, rubs, gallop - GI/Abdominal GI/Abdominal exam: Present: soft. Absent: distended, tenderness, guarding, rebound, rigid, pulsatile mass - Extremities Exam Extremities exam: Present: normal inspection, full ROM, other (2+ pulses noted in the bilateral upper and lower extremities. There is no palpable cord. negative Homans sign. Muscular compartments are soft. The pelvis is stable.). Absent: pedal edema, calf tenderness - Back Exam Back exam: Present: normal inspection, full ROM. Absent: tenderness, CVA tenderness (R), CVA tenderness (L), paraspinal tenderness, vertebral tenderness - Neurological Exam Neurological exam: Present: alert, oriented X3, normal gait, other (No facial droop. Tongue midline. Extraocular movements intact bilaterally. Facial sensation intact to light touch in V1, V2, V3 distribution bilaterally. 5 and a 5 strength in 4 extremities. Sensation intact to light touch in 4 extremities.). Absent: motor sensory deficit - Psychiatric Psychiatric exam: Present: normal affect, normal mood - Skin Skin exam: Present: warm, dry, intact, normal color. Absent: rash ED Course Vital Signs 12/04/21 21:26 Temperature 98.5 F Pulse Rate 105 H Respiratory 18 Rate Blood Pressure 185/92 [Right] O2 Sat by Pulse 98 Oximetry ED Medical Decision Making - Lab Data Vital Signs 12/04/21 21:26 Temperature 98.5 F Pulse Rate 105 H Respiratory 18 Rate Blood Pressure 185/92 [Right] O2 Sat by Pulse 98 Oximetry - Medical Decision Making Differential diagnosis, including the not limited to: Obstructive sleep apnea, medication side effect, morbid obesity, deconditioning, elevated blood pressure Assessment and plan: 36-year-old female, who is afebrile, with resolved tachycardia, who reports that she is not , and reports that she has not delivered her given in the past 6 weeks, likely presenting with nonspecific symptoms in the context of starting a new blood pressure medication. Patient counseled that for high blood pressure, we would recommend diet and lifestyle modifications. Patient strongly counseled to aggressively lose weight, she is also advised that she may discontinue blood pressure medication, and also advised to follow-up for an outpatient sleep study. She further reports that she has follow-up with her primary care doctor tomorrow, a new physician in whom she is establishing care with, she has a GCS of 15, with an NIH score of 0, and walks with a steady gait. She denies DVT and pulmonary embolism risk factors. She also advises unremarkable laboratory and EKG work-up at an outpatient facility. Critical care attestation.: If time is entered above; I have spent that time in minutes in the direct care of this critically ill patient, excluding procedure time. ED Disposition Clinical Impression: BMI 70 and over, adult, Elevated blood pressure reading Disposition: 01 HOME / SELF CARE / HOMELESS Is pt being admited?: No Does the pt Need Aspirin: No Condition: Stable Additional Instructions: As we discussed, patient may discontinue her current prescribed blood pressure medications. First-line treatment for elevated blood pressure and hypertension include diet, lifestyle modifications, and aggressive weight loss. Patient is found to be 182 kg, and have a body mass index of 69 today in the emergency room. This categorizes the patient is super morbidly obese. We recommend aggressive weight loss, physical activity as tolerated, and appropriate diet. Patient should avoid consumption of sugar, carbohydrates, starches, processed foods, and consume fiber, vegetables, and lean protein. We also recommend that the patient no longer consume marijuana and/or tobacco, and also avoid consumption of alcohol. We do recommend follow-up with her primary care doctor tomorrow as scheduled, or within the next [address] James is a local primary care doctor. In addition, given patient's super morbid obesity, she may have undiagnosed obstructive sleep apnea, which may be contributing to her high blood pressure/elevated blood pressure. Therefore, we recommend follow-up with the pulmonology/sleep specialist, such as Dr. Levine, within the next month. Patient may use the nicotine gum as needed to facilitate tobacco cessation. Please return to the emergency room right away with new pain, worsened pain, migration of pain, projectile vomiting, change in mental status, confusion, inability tolerate liquid feeds, new, worsened or different symptoms not present on the initial emergency room evaluation Referrals: MEHDI LEVINE MD [Staff Physician] - 3-5 Days ZAFAR JAMES MD [Staff Physician] - 3-5 Days Forms: Work/School Release Form(ED)
[2021-12-05 00:46] VITALS: BP 138/86
== END 2021-12-05 00:49 | disposition home or self-care (01) ==
LOC: ED 21:03
DX: I10 Essential (primary) hypertension (principal); Z68.45 Body mass index [BMI] 70 or greater, adult
CPT/HCPCS: 99282